=== PATIENT | male | born 1995 | race Caucasian/White ===

== ENCOUNTER 2016-11-11 11:37 | Emergency (ER) | payer MEDICAID ==
[~2016-11-11] VITALS: Ht 170.2 cm; Wt 91.4 kg
[2016-11-11 14:43] VITALS: BP 148/74
== END 2016-11-11 14:15 | disposition home or self-care (01) ==
LOC: ED 11:37
DX: M54.5 Low back pain (principal); R03.0 Elevated blood-pressure reading, without diagnosis of hypertension
CPT/HCPCS: J1885